=== PATIENT | male | born 1945 | race Caucasian/White ===

== ENCOUNTER → 2021-03-28 | Outpatient (CLI) | payer OTHER ==
--- NOTE | 2021-03-28 10:47 | 2DMMODE ---
[facility] [place] [address] 2 D/M-MODE ECHOCARDIOGRAM Name: EMELIA CASTANEDA Room #: REG [facility]#: [id number] Admission: 03/28/21 Attend Phys: Francisco Javier Fermin MD Discharge: Date of : 47 Report #: [id number] THIS REPORT FOR: cc: Luis Renteria MD, David H. MD Santiago, Patrick MD [facility] ~ APPROVED REPORT Study performed: 03/28/2021 10:12:01 EXAM: Comprehensive 2D, Doppler, and color-flow Echocardiogram Patient Location: Out-Patient Status: routine BSA: 2.04 HR: 49 bpm BP: 120/74 mmHg Rhythm: NSR/MCKENZIE Other Information Study Quality: Good Indications CAD Hx: [place], stents, CABG. 2D Dimensions RVDd: 38.34 mm IVSd: 10.01 (7-11mm) LVOT Diam: 21.90 (18-24mm) LVDd: 55.41 mm PWd: 10.46 (7-11mm) Ascending Ao: 34.67 (22-36mm) LVDs: 43.07 (25-40mm) Left Atrium: 45.21 (27-40mm) Aortic Root: 36.88 mm Volumes Left Atrial Volume (Systole) Single Plane 4CH: 66.80 mL Single Plane 2CH: 55.20 mL LA ESV Index: 31.00 mL/m2 Aortic Valve AoV Peak Roel.: 1.18 m/s AO Peak Gr.: 5.52 mmHg LVOT Max P.30 mmHg LVOT Max V: 0.91 m/s [facility] [address] [place] [address] 2 D/M-MODE ECHOCARDIOGRAM Name: EMELIA CASTANEDA Room #: REG [facility]#: [id number] Admission: 03/28/21 Attend Phys: Francisco Javier Fermin MD Discharge: Date of : 47 Report #: [id number] SAMARIA Vmax: 2.91 cm2 Mitral Valve E/A Ratio: 0.6 MV Decel. Time: 361.47 ms MV E Max Roel.: 0.63 m/s MV A Roel.: 0.98 m/s MV PHT: 104.83 ms IVRT: 124.57 ms Pulmonary Valve PV Peak Roel.: 0.93 m/s PV Peak Gr.: 3.46 mmHg Pulmonary Vein P Vein S: 0.55 m/s P Vein A: 0.33 m/s P Vein D: 0.46 m/s P Vein A Dur.: 92.3 msec P Vein S/D Ratio: 1.20 Tricuspid Valve TR Peak Roel.: 3.01 m/s RAP Estimate: 5.00 mmHg TR Peak Gr.: 36.17 mmHg PA Pressure: 41.00 mmHg Left Ventricle The left ventricle is normal size. There is normal LV segmental wall motion. There is normal left ventricular wall thickness. Left ventricular systolic function is normal. LVEF is 50%. Mild diastolic dysfunction is present (impaired relaxation pattern). Right Ventricle The right ventricle is normal size. The right ventricular systolic function is normal. Atria Left atrium is at the upper limits of normal. The right atrium size is normal. Aortic Valve The aortic valve is normal in structure. Trace aortic regurgitation. There is no aortic valvular stenosis. Mitral Valve The mitral valve is normal in structure. Mild mitral regurgitation. No evidence of mitral valve stenosis. Tricuspid Valve [facility] [employer] [place] [address] 2 D/M-MODE ECHOCARDIOGRAM Name: EMELIA CASTANEDA JEREMIE Room #: REG [facility]#: [id number] Admission: 03/28/21 Attend Phys: Francisco Javier Fermin MD Discharge: Date of : 47 Report #: [id number] The tricuspid valve is normal in structure. Mild tricuspid regurgitation. Estimated PAP is 41mmHg. Pulmonic Valve The pulmonary valve is normal in structure. Mild pulmonic regurgitation. Great Vessels The aortic root is normal in size. The ascending aorta is normal in size. IVC is normal in size and collapses >50% with inspiration. Pericardium There is no pericardial effusion. <Conclusion> Normal left ventricle size/wall thickness Ejection fraction 50% Low normal ejection fraction Grade 1 diastolic dysfunction Normal right ventricular size/function Normal atrial size Color-flow Doppler studies performed of the aortic/mitral/tricuspid/pulmonary valve Normal aortic/mitral valve structure and function Mild mitral valve insufficiency Mild tricuspid valve insufficiency Pulmonary systolic pressure estimated 41 mmHg Normal aortic root size No pericardial effusion <ELECTRONICALLY SIGNED> By: Omero Sheth MD, FACC 03/28/21 1047 [id number] Omero Sheth MD, FACC /INF
== END ==
LOC: CV 08:28
PROVIDERS: ATTEND Orthopaedic Surgery
DX: I08.8 Other rheumatic multiple valve diseases (principal); I25.10 Atherosclerotic heart disease of native coronary artery without angina pectoris